=== PATIENT | male | born 2000 | race Caucasian/White ===

== ENCOUNTER 2022-05-13 16:28 | Outpatient (CLI) | payer OTHER, SELFPAY ==
[2022-05-13 16:40] LABS: Hematocrit 44.3 % (37.0-53.0); Hemoglobin* 15.3 gm/dL (13.5-17.5); Mean Corpuscular HGB Conc 35 gm/dL (32-36); Mean Corpuscular Hemoglobin 29 pg (26-34); Mean Corpuscular Volume 85 fL (80-100); Platelet Count* 220 K/uL (140-440); Red Blood Count 5.23 m/uL (4.30-5.90); White Blood Count* 5.74 K/uL (4.50-11.00)
[2022-05-13 16:42] LABS: Slide Review Reflex No
[2022-05-13 16:43] LABS: Blood Urea Nitrogen POC* 14 mg/dl (8-26); Carbon Dioxide Point of Care* 27 mmol/L (20-32); Chloride Point of Care* 103 mmol/L (98-109); Creatinine Point of Care* 0.8 mg/dl (0.6-1.3); Glucose IStat Point of Care 93 mg/dl (60-115); Ionized Calcium Point of Care* 1.24 mmol/L (1.11-1.33); Potassium Point of Care* 4.2 mmol/L (3.5-4.9); Sodium Point of Care* 141 mmol/L (138-146)
[2022-05-13 18:45] LABS: D Dimer Quantitative* < 0.27 ug/ml (0.00-0.50)
== END 2022-05-13 16:29 | disposition home or self-care (01) ==
PROVIDERS: Visit Provider Student in an Organized Health Care Education/Training Program
DX: M79.604 Pain in right leg (principal)
CPT/HCPCS: 85027; 85379